=== PATIENT | male | born 1960 | race Two or more races ===

== ENCOUNTER 2023-11-07 09:52 | Inpatient (IN) | payer MEDICAID ==
[~2023-11-07] VITALS: Ht 185.4 cm; Wt 105.2 kg
[2023-11-07] MEDS: cloNIDine HCL 0.1 MG TAB ONE (10:33)
[2023-11-07] MEDS: cloNIDine HCL 0.1 MG TAB PO ONE (10:33)
[2023-11-07 11:51] LABS: Basophils # (auto) 0 10 ^3/uL (0-0.2); Basophils % (auto) 0.4 % (0.0-2.0); Eosinophils # (auto) 0 10 ^3/uL (0-0.8); Eosinophils % (auto) 0.5 % (0.0-7.0); Lymphocytes # (auto) 2.5 10 ^3/uL (0.4-5.4); Lymphocytes % (auto) 23.1 % (10.0-50.0); Mean Corpuscular Hemoglobin 31.9 pg (28.0-32.0); Mean Corpuscular Hgb Conc. 34.1 g/dL (32.0-36.0); Mean Corpuscular Volume 93.8 fL (80.0-100.0); Monocytes # (auto) 0.7 10 ^3/uL (0-1.3); Monocytes % (auto) 6.4 % (0.0-12.0); Neutrophils # (auto) 7.5 10 ^3/uL (1.6-8.6); Neutrophils % (auto) 69.6 % (37.0-80.0); Nucleated Red Blood Cells % 0.1 %; Red Blood Cells 5.01 10^6/uL (4.5-5.90); Red Cell Distribution Width 14.1 % (11.8-14.3); White Blood Cell 10.7 10^3/uL (4.4-10.8)
[2023-11-07 11:59] LABS: Alanine Aminotransferase 39 U/L (7-40); Albumin 4.3 g/dL (3.2-4.8); Alkaline Phosphatase 57 U/L (46-116); Anion Gap 5 (5-15); Aspartate Aminotransferase 28 U/L (13-40); Blood Urea Nitrogen 18 mg/dL (9-23); Calcium 9.5 mg/dL (8.5-10.1); Carbon Dioxide 25 mmol/L (20-30); Chloride 106 mmol/L (98-107); Glucose 120 mg/dL (74-106); Magnesium 2.2 mg/dL (1.6-2.6); Potassium 4.1 mmol/L (3.5-5.1); Sodium 136 mmol/L (136-145)
[2023-11-07 12:00] LABS: Bilirubin, Total 1.2 mg/dL (0.2-1.0); Total Protein 6.8 g/dL (5.7-8.2)
[2023-11-07] MEDS: FUROSEMIDE 40 MG/4 ML VIAL IV ONE (13:26)
[2023-11-07] MEDS: ASPirin 81 mg TAB PO ONE (13:27)
[2023-11-07 13:28] VITALS: PULSE 100; RESP 15; O2SAT 98
[2023-11-07] MEDS ORDERED: ONDANSETRON HCL 4 MG/2 ML VIAL IV PRN (13:30)
[2023-11-07] MEDS ORDERED: NITROGLYCERIN 0.4 MG SL TAB SL PRN (13:30)
[2023-11-07] MEDS ORDERED: MORPHINE SULFATE INJ 2 MG/ml SYRG IV PRN (13:30)
[2023-11-07] MEDS: hydrALAZINE HCL 20 MG/ML VL IV PRN (13:50)
[2023-11-07] MEDS: LABETALOL HCL 5 MG/ML 4ML SYRINGE IV ONE (13:53)
[2023-11-07] MEDS: NIFEdipine ER 30 MG TAB PO ONE (13:53)
[2023-11-07 14:11] LABS: Triglycerides 226 mg/dL (< 150)
[2023-11-07 14:12] LABS: LDL Cholesterol 124 mg/dL (< 100)
[2023-11-07 14:13] LABS: Cholesterol 184 mg/dL (< 200); HDL Cholesterol 42 mg/dL (40-59)
[2023-11-07] MEDS: METOPROLOL TARTRATE 25 MG TAB PO SCH (22:00)
[2023-11-07] MEDS: ATORVASTATIN 20 MG TAB PO SCH (22:00)
[2023-11-08] VITALS (9 sets, daily range): BP systolic 106–146; BP diastolic 70–93; PULSE 53–92; RESP 18; TEMP 97.6–98.4; O2SAT 94–98
[2023-11-08 07:14] LABS: Basophils # (auto) 0.1 10 ^3/uL (0-0.2); Basophils % (auto) 0.6 % (0.0-2.0); Eosinophils # (auto) 0.1 10 ^3/uL (0-0.8); Eosinophils % (auto) 1.7 % (0.0-7.0); Hematocrit 46.5 % (41.0-53.0); Lymphocytes # (auto) 2.6 10 ^3/uL (0.4-5.4); Lymphocytes % (auto) 29.7 % (10.0-50.0); Mean Corpuscular Hgb Conc. 34.4 g/dL (32.0-36.0); Mean Corpuscular Volume 93.1 fL (80.0-100.0); Monocytes # (auto) 0.6 10 ^3/uL (0-1.3); Monocytes % (auto) 6.6 % (0.0-12.0); Neutrophils # (auto) 5.4 10 ^3/uL (1.6-8.6); Neutrophils % (auto) 61.4 % (37.0-80.0); Nucleated Red Blood Cells % 0.1 %; Red Blood Cells 4.99 10^6/uL (4.5-5.90); Red Cell Distribution Width 14.2 % (11.8-14.3); White Blood Cell 8.8 10^3/uL (4.4-10.8)
[2023-11-08 07:34] LABS: Alanine Aminotransferase 34 U/L (7-40); Alkaline Phosphatase 55 U/L (46-116); Anion Gap 7 (5-15); BUN/Creatinine Ratio 15.4 (10.0-20.0); Blood Urea Nitrogen 16 mg/dL (9-23); Calcium 9.4 mg/dL (8.5-10.1); Carbon Dioxide 24 mmol/L (20-30); Chloride 106 mmol/L (98-107); Glucose 109 mg/dL (74-106); Potassium 3.6 mmol/L (3.5-5.1); Sodium 137 mmol/L (136-145)
[2023-11-08 07:35] LABS: Albumin 4.2 g/dL (3.2-4.8); Aspartate Aminotransferase 19 U/L (13-40)
[2023-11-08 07:36] LABS: Bilirubin, Total 1.6 mg/dL (0.2-1.0); Total Protein 6.6 g/dL (5.7-8.2)
[2023-11-08] MEDS ORDERED: FUROSEMIDE 20 MG/2 ML VIAL IV SCH (10:00)
[2023-11-08] MEDS ORDERED: NIFEdipine ER 30 MG TAB PO SCH (10:00)
[2023-11-08] MEDS: PANTOPRAZOLE 40 MG/10 ML VIAL INJ IV SCH (10:46)
[2023-11-08] MEDS: FUROSEMIDE 40 MG/4 ML VIAL IV ONE (10:46)
[2023-11-08 10:47] LABS: INR 1.12 (0.9-1.15); Partial Thromboplastin Time 27.2 SEC (24.5-34.5); Prothrombin Time 11.8 sec (9.3-11.8)
[2023-11-08] MEDS: CLOPIDOGREL BISULFATE 75 MG TAB PO SCH (10:49)
[2023-11-08] MEDS: LISINOPRIL 20 MG TAB PO SCH (10:49)
[2023-11-08] MEDS: FUROSEMIDE 40 MG/4 ML VIAL IV SCH (18:30)
[2023-11-08] MEDS: ERGOCALCIFEROL 50,000 UNIT(1.25MG) CAP PO SCH (21:34)
[2023-11-08] MEDS: CYANOCOBALAMIN 500 MCG TAB PO ONE (21:34)
[2023-11-08] MEDS: APIXABAN 5 MG TAB PO SCH (21:45)
[2023-11-08] MEDS: HYDROcodone-ACET 5/325MG TAB PO PRN (22:17)
[2023-11-09 01:42] LABS: Urine WBC None Seen /hpf (0 - 3)
[2023-11-09 02:23] LABS: Amphetamine Screen, Urine Neg (NEGATIVE); Barbiturate Scree,Urine Neg (NEGATIVE); Benzodiazephine Screen, Urine Neg (NEGATIVE); Cocaine Screen, Urine Neg (NEGATIVE); Opiate Scree,Urine Neg (NEGATIVE); Urine Bacteria FEW /hpf (None Seen); Urine Blood TRACE /uL (Negative); Urine Clarity Clear (Clear); Urine Color Light-Yellow (Yellow); Urine Protein, UAD 1+ (Negative); Urine Urobilinogen Normal (Negative); Urine pH 5.5 (5.0-9.0)
[2023-11-09 02:24] LABS: Cannabinoid Screen, Urine Pos (NEGATIVE); Phencyclidine Screen, Urine Neg (NEGATIVE)
[2023-11-09 05:00] VITALS: BP 131/104; PULSE 60; RESP 18; TEMP 97.7; O2SAT 98
[2023-11-09 06:53] LABS: Basophils # (auto) 0 10 ^3/uL (0-0.2); Basophils % (auto) 0.3 % (0.0-2.0); Eosinophils # (auto) 0.2 10 ^3/uL (0-0.8); Eosinophils % (auto) 1.5 % (0.0-7.0); Hematocrit 50.3 % (41.0-53.0); Hemoglobin 16.8 g/dL (13.5-17.5); Lymphocytes # (auto) 2.5 10 ^3/uL (0.4-5.4); Lymphocytes % (auto) 22.7 % (10.0-50.0); Mean Corpuscular Hemoglobin 31.1 pg (28.0-32.0); Mean Corpuscular Hgb Conc. 33.4 g/dL (32.0-36.0); Mean Corpuscular Volume 93.3 fL (80.0-100.0); Monocytes # (auto) 0.8 10 ^3/uL (0-1.3); Monocytes % (auto) 7.5 % (0.0-12.0); Neutrophils # (auto) 7.5 10 ^3/uL (1.6-8.6); Nucleated Red Blood Cells % 0.1 %; Red Blood Cells 5.39 10^6/uL (4.5-5.90); Red Cell Distribution Width 14.3 % (11.8-14.3)
[2023-11-09 07:05] LABS: Alanine Aminotransferase 32 U/L (7-40); Albumin 4.4 g/dL (3.2-4.8); Alkaline Phosphatase 61 U/L (46-116); Anion Gap 8 (5-15); Aspartate Aminotransferase 19 U/L (13-40); BUN/Creatinine Ratio 13.4 (10.0-20.0); Bilirubin, Total 1.4 mg/dL (0.2-1.0); Blood Urea Nitrogen 18 mg/dL (9-23); Calcium 9.7 mg/dL (8.5-10.1); Carbon Dioxide 27 mmol/L (20-30); Chloride 103 mmol/L (98-107); Glucose 122 mg/dL (74-106); Potassium 3.8 mmol/L (3.5-5.1); Sodium 138 mmol/L (136-145); Total Protein 6.9 g/dL (5.7-8.2)
[2023-11-09 08:00] VITALS: PULSE 58; PULSE 82; RESP 18
[2023-11-09] MEDS ORDERED: EMPA1TAB PO (08:12)
[2023-11-09] MEDS ORDERED: CYAN500T3 PO (08:12)
[2023-11-09] MEDS ORDERED: SPIR25TA PO (08:12)
[2023-11-09] MEDS ORDERED: FURO40TA4 PO (08:12)
[2023-11-09] MEDS ORDERED: ATOR20TA50 PO (08:12)
[2023-11-09] MEDS ORDERED: APIX5TAB PO (08:12)
[2023-11-09] MEDS ORDERED: VALS1TAB57 PO (08:12)
[2023-11-09] MEDS ORDERED: MET25T PO (08:12)
[2023-11-09] MEDS ORDERED: CLOP75TA70 PO (08:12)
[2023-11-09] MEDS ORDERED: ERGO1CAP23 PO (08:12)
[2023-11-09 09:00] VITALS: BP 127/88; PULSE 91; RESP 18; TEMP 97.5; O2SAT 95
[2023-11-09] MEDS: VALSARTAN 80 MG TAB PO SCH (10:06)
[2023-11-09] MEDS: FUROSEMIDE 40 MG TAB PO SCH (10:07)
[2023-11-09] MEDS: ERGOCALCIFEROL 50,000 UNIT(1.25MG) CAP PO SCH (10:07)
[2023-11-09] MEDS: EMPAGLIFLOZIN 10 MG TAB PO SCH (10:08)
[2023-11-09] MEDS: CYANOCOBALAMIN 500 MCG TAB PO SCH (10:08)
[2023-11-09] MEDS: SPIRONOLACTONE 25 MG TAB PO SCH (10:09)
== END 2023-11-09 10:48 | disposition home or self-care (01) | DRG 194 ==
LOC: ER 09:52 → TELE 13:31 → TELE-WESTW 21:33
PROVIDERS: ADMIT Internal Medicine; ATTEND Internal Medicine
DX: I11.0 Hypertensive heart disease with heart failure (principal); I21.A1 Myocardial infarction type 2; Z95.1 Presence of aortocoronary bypass graft; I16.1 Hypertensive emergency; I50.23 Acute on chronic systolic (congestive) heart failure; I25.10 Atherosclerotic heart disease of native coronary artery without angina pectoris; E78.5 Hyperlipidemia, unspecified; E66.9 Obesity, unspecified; I48.21 Permanent atrial fibrillation; R73.03 Prediabetes; K25.9 Gastric ulcer, unspecified as acute or chronic, without hemorrhage or perforation; Z91.199 Patient's noncompliance with other medical treatment and regimen due to unspecified reason; F32.A Depression, unspecified; Z87.11 Personal history of peptic ulcer disease
CPT/HCPCS: 36415; 36600; 70450; 71045; 71275; 80053; 80061; 80307; 81001; 82306; 82607; 82805; 83036; 83735; 83880; 84100; 84443; 84484; 85025; 85379; 85610; 85730; 93005; 93306; 96374; 96375; G0378; J3490